=== PATIENT | male | born 1960 | race Two or more races ===

== ENCOUNTER 2024-12-25 11:07 | Outpatient (AMB) | payer OTHER, SELFPAY ==
--- NOTE | 2024-12-25 11:14 | MHC.OFFVIS ---
Intake Visit Reasons: 6m Allergies No Known Allergies Allergy (Unverified 12/25/24 11:19) Medication List - Last Reconciled 12/25/24 by Brunilda Mathis CNP amitriptyline 50 mg PO BEDTIME gabapentin 800 mg PO TID ibuprofen 600 mg PO BID PRN HPI Comments Details: Increased lower back pain with pain down right leg, along with increased numbness and tingling for few days. Was helping son pack and move, was going up and down stairs, and did some heavy lifting. Ibuprofen as needed helping. No falls. Otherwise, chronic low back pain stable. Still has numbness and tingling and some right foot pain that comes and goes. Worse with damp and cold weather.?Pain is worse when sitting down. Walking daily. No falls. Sleep was so-so.?Using amitriptyline as needed. Had a series of epidural inj that did not work. He has had 2 MRIs and nerve conduction studies which showed degenerative disc disease at L1-2 and grade one L5-S1 anterolisthesis and bilateral L5 spondylolyses unchanged from before. No neto disc herniation. The nerve conduction studies and EMG showed axonal loss in the right peroneal nerve and subacute and chronic denervated changes in the right L5 innervated muscles. Last EMG was done on 11/24/2010. In the past he had some relief from the Tramadol. Complaining of cramping in the calves R>L. [facility] Medical History (Updated 12/25/24 @ 11:17 by Brunilda Mathis CNP) ERIN on CPAP Peripheral neuropathy Low back pain ERIN (obstructive sleep apnea) Pain in joint, lower leg Lumbar radiculopathy Family History (Updated 11/10/24 @ 15:18 by Karen Macdonald [facility]) Father HTN (hypertension) Review of Systems Const Denies chills, Denies daytime sleepiness, Denies difficulty sleeping, Denies fatigue, Denies fever(s), Denies frequent falls, Denies headache(s), Denies increased appetite, Denies poor appetite, Denies snoring, Denies weakness, Denies weight gain and Denies weight loss Eyes Denies loss of vision ENT Denies vertigo, Denies dizziness, Denies headache(s) and Denies neck pain Card Denies chest pain at rest, Denies chest pain with activity, Denies syncope, Denies leg edema, Denies palpitations, Denies dyspnea and Denies dyspnea on exertion Resp Denies cough, Denies dyspnea, Denies dyspnea on exertion and Denies snoring GI Denies abdominal pain, Denies constipation, Denies heartburn, Denies diarrhea and Denies nausea Denies urinary frequency, Denies urinary incontinence and Denies urinary urgency Musc Denies abnormal gait, Reports back pain, Denies myalgias, Denies arthralgias, Denies neck pain, Reports numbness and Reports tingling Neuro Denies abnormal gait, Denies vertigo, Denies dizziness, Denies syncope, Denies frequent falls, Denies headache(s), Denies lack of coordination, Denies loss of vision, Denies memory loss, Reports numbness, Denies Other visual disturbances, Denies restless legs, Denies seizure-like activity, Reports tingling, Denies paresthesias, Denies tremor(s) and Denies weakness Psych Denies anxiety, Denies depression, Denies auditory hallucinations, Denies memory loss and Denies visual hallucinations Endo Denies fatigue and Denies palpitations Physical Exam Const Other: General Appearance:? normal, in no acute distress. Heart:? S1, S2 normal, no murmurs. Lungs:? clear anteriorly and posteriorly. Musculoskeletal:? normal. Extremities:? no edema. Psych:? alert, oriented, cognitive function intact, cooperative with exam. Neuro Other: Abnormal Neurological Findings:?none.? Mental Status: alert and oriented X 3. Normal attention, orientation, memory, and affect. Cranial Nerves: Pupils are equal, round, and reactive to light. External ocular muscles are intact. Visual cheatham are full, no ptosis. Face is symmetrical, no facial weakness or droop. Facial sensations are normal. Tongue protrudes in midline. Palate elevates symmetrically. Shoulder shrugging is normal Motor Examination: Normal muscle tone, bulk and strength. No atrophy or fasciculations. No drift of the extended upper extremities. DTR 2+. Plantars are flexor. Sensory Exam: Normal light touch, temperature, pinprick, vibration, and joint-position sensations. Rhomberg sign is absent. Coordination: No ataxia. No titubation. Gait Exam: Within normal limits. Cerebellar Signs: [id number] is okay. Extrapyramidal System: No tremor, rigidity with normal facial expressions. No bradykinesia. No bradyphrenia. Normal arm swing and posture. No propulsion or retropulsion. Speech: Normal. Results Reviewed Results Reviewed: NCV/EMG LE 08/26/18 Mild to moderate axonal sensory and motor peripheral neuropathy in the lower extremities. Normal EMG in the right L4-S1 innervated muscles. . NCV/EMG LE 12/08/12 DECREASED SENORY ACTION POTENTIAL WAVEFORMS COMPARED TO LAST NCV/EMG DONE 2010. Assessment & Plan Assessment & Plan (1) Lumbar radiculopathy: Comment: Surgical options discussed, does not want to consider it Code(s): M54.16 - Radiculopathy, lumbar region Category: Medical Plan: Continue gabapentin 400mg 2 capsules three times a day. Continue amitriptyline 50mg 1 tablet at bedtime. Continue ibuprofen 600mg 1 tablet with food or milk as needed for pain twice a day #60 for 30 days. Start prednisone taper x1 week, use/side effects reviewed. (2) Peripheral neuropathy: Code(s): G62.9 - Polyneuropathy, unspecified Category: Medical Qualifiers: Peripheral neuropathy type: polyneuropathy, unspecified Qualified Code(s): G62.9 - Polyneuropathy, unspecified Plan . Medications: New prednisone 20 mg orally 3 tabs x3 days, 2 tabs x2 days, 1 tab x2 days; 15 tabs 0RF 7 days Coding Level of Care Code Est Pt Level 4 (95886) Diagnoses Lumbar radiculopathy M54.16 Peripheral polyneuropathy G62.9 Peripheral neuropathy type: polyneuropathy, unspecified
== END 2024-12-25 11:27 | disposition home or self-care (01) ==
PROVIDERS: PCP Internal Medicine; Visit Provider Registered Nurse
DX: M54.16 Radiculopathy, lumbar region (principal); G62.9 Polyneuropathy, unspecified
CPT/HCPCS: 99214

== ENCOUNTER → 2024-12-25 11:07 | Outpatient (BNVA) | payer OTHER, SELFPAY | PROVIDERS: PCP Internal Medicine; Visit Provider Registered Nurse | DX: M54.16 Radiculopathy, lumbar region (principal); G62.9 Polyneuropathy, unspecified; Z79.1 Long term (current) use of non-steroidal anti-inflammatories (NSAID); Z79.899 Other long term (current) drug therapy | CPT/HCPCS: 99212 ==